=== PATIENT | female | born 1975 | race Two or more races ===

== ENCOUNTER 2017-05-23 12:04 | Outpatient (CLI) | payer OTHER | END 2017-05-23 12:12 | disposition home or self-care (01) | LOC: LAB 12:04 | DX: N39.0 Urinary tract infection, site not specified (principal); R82.79 Other abnormal findings on microbiological examination of urine ==

== ENCOUNTER 2017-05-23 13:22 | Outpatient (CLI) | payer OTHER | END 2017-05-23 13:29 | disposition home or self-care (01) | LOC: MAMO-SONO 13:22 | DX: Z12.31 Encounter for screening mammogram for malignant neoplasm of breast (principal); N61.0 Mastitis without abscess; E04.1 Nontoxic single thyroid nodule ==

== ENCOUNTER → 2017-05-23 | Outpatient (CLI) | payer OTHER ==
[~2017-05-23] MED LIST: ATABEX PRENATAL1 TAB PO
== END | disposition home or self-care (01) ==
LOC: PPHC 11:22
DX: N39.0 Urinary tract infection, site not specified (principal)

== ENCOUNTER 2017-05-25 09:58 | Outpatient (CLI) | payer OTHER | END 2017-05-25 10:04 | disposition home or self-care (01) | LOC: SONOGRAMA 09:58 | DX: R31.0 Gross hematuria (principal) ==

== ENCOUNTER 2017-06-01 09:39 | Outpatient (CLI) | payer OTHER | END 2017-06-01 09:44 | disposition home or self-care (01) | LOC: LAB 09:39 | DX: N39.0 Urinary tract infection, site not specified (principal) ==

== ENCOUNTER → 2018-03-21 | Emergency (ER) | payer OTHER ==
[~2018-03-21] VITALS: Ht 165.1 cm; Wt 77.1 kg
== END | disposition left against medical advice (07) ==
LOC: ER 11:48
DX: Z53.20 Procedure and treatment not carried out because of patient's decision for unspecified reasons (principal)